=== PATIENT | female | born 2000 | race African-American/Black ===

== ENCOUNTER 2022-11-03 16:02 | Outpatient (CLI) | payer SELFPAY | END 2022-11-03 16:03 | disposition home or self-care (01) | LOC: AMB 11-13 20:08 | PROVIDERS: Visit Provider Emergency Medicine Emergency Medical Services | DX: S09.93XA Unspecified injury of face, initial encounter (principal); S49.90XA Unspecified injury of shoulder and upper arm, unspecified arm, initial encounter; V49.3XXA Car occupant (driver) (passenger) injured in unspecified nontraffic accident, initial encounter; Y92.410 Unspecified street and highway as the place of occurrence of the external cause | CPT/HCPCS: A0425; A0429 ==

== ENCOUNTER 2022-11-03 16:43 | Emergency (ER) | payer SELFPAY ==
[2022-11-03 16:50] VITALS: BP 146/80; PULSE 97; RESP 14; TEMP 36.7; O2SAT 100; BMI 29.1
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
== END 2022-11-03 19:00 | disposition home or self-care (01) ==
PROVIDERS: Emergency Provider Emergency Medicine Emergency Medical Services
DX: M25.511 Pain in right shoulder (principal); W22.10XA Striking against or struck by unspecified automobile airbag, initial encounter; V43.62XA Car passenger injured in collision with other type car in traffic accident, initial encounter
CPT/HCPCS: 73030; 99284; 99291; G0390